=== PATIENT | female | born 1970 | race Caucasian/White ===

== ENCOUNTER → 2017-11-22 | Outpatient (CLI) | payer BC | LOC: CFH 15:33 | PROVIDERS: ATTEND Nurse Practitioner Primary Care | DX: M65.9 Synovitis and tenosynovitis, unspecified (principal); M25.532 Pain in left wrist; R53.83 Other fatigue; R20.2 Paresthesia of skin; R32 Unspecified urinary incontinence; I10 Essential (primary) hypertension; J45.909 Unspecified asthma, uncomplicated; Z85.43 Personal history of malignant neoplasm of ovary ==